=== PATIENT | female | born 1960 | race African-American/Black ===

== ENCOUNTER 2018-08-15 20:27 | Emergency (ER) | payer MEDICAID ==
[~2018-08-15] VITALS: Ht 167.6 cm; Wt 70.8 kg
[2018-08-15 20:48] VITALS: BP 161/86
[2018-08-15] MEDS ORDERED: Ketorolac 30mg Inj IV ONE (21:00)
[2018-08-15] MEDS ORDERED: Sodium Chloride 500ML 550 ML IV SCH (21:00)
[2018-08-15] MEDS ORDERED: Morphine Sulfate 4mg/ml Inj (IV/IM USE ONLY) IVP ONE (21:00)
[2018-08-15 21:22] LABS: INR 1.1 (0.9-1.1)
[2018-08-15 21:24] LABS: BASOPHILS % (AUTO) 0.9 % (0.0-2.0); EOSINOPHILS % (AUTO) 0.2 % (0.0-3.0); HEMATOCRIT 38.5 % (37.0-47.0); HEMOGLOBIN 12.5 G/DL (12.0-16.0); LYMPHOCYTES % (AUTO) 10.3 % (20.0-45.0); MEAN CORPUSCULAR VOLUME 92 FL (80-99); MONOCYTES % (AUTO) 4.9 % (1.0-10.0); NEUTROPHILS % (AUTO) 83.7 % (45.0-75.0); PLATELET COUNT 245 K/UL (150-450); RED BLOOD COUNT 4.18 M/UL (4.20-5.40); RED CELL DISTRIBUTION WIDTH 11.7 % (11.6-14.8); WHITE BLOOD COUNT 7.9 K/UL (4.8-10.8)
[2018-08-15 21:28] LABS: ANION GAP 10 mmol/L (5-15); BLOOD UREA NITROGEN 17 mg/dL (7-18); CALCIUM 9.1 MG/DL (8.5-10.1); CARBON DIOXIDE 28 MMOL/L (21-32); CHLORIDE 104 MMOL/L (98-107); CREATININE 0.9 MG/DL (0.55-1.30); POTASSIUM 3.6 MMOL/L (3.5-5.1); SODIUM 142 MMOL/L (136-145)
[2018-08-15 21:31] LABS: APPEARANCE,URINE CLEAR; BILIRUBIN, URINE NEGATIVE (NEGATIVE); GLUCOSE, URINE (UA) NEGATIVE (NEGATIVE); KETONES,URINE NEGATIVE (NEGATIVE); LEUKOCYTE ESTERASE ,URINE 3+ (NEGATIVE); NITRITE,URINE NEGATIVE (NEGATIVE); PH,URINE 5 (4.5-8.0); PROTEIN,URINE 1+ (NEGATIVE); UROBILINOGEN,URINE NORMAL MG/DL (0.0-1.0)
[2018-08-15 21:32] LABS: COLOR,URINE YELLOW
[2018-08-15 21:38] LABS: ALANINE AMINOTRANSFERASE 12 U/L (12-78); ALBUMIN 4.1 G/DL (3.4-5.0); ALBUMIN/GLOBULIN RATIO 1.2 (1.0-2.7); ALKALINE PHOSPHATASE 55 U/L (46-116); ASPARTATE AMINO TRANSFERASE 11 U/L (15-37)
[2018-08-15 22:35] VITALS: BP 171/77
--- NOTE | 2018-08-15 22:46 | Emergency Room Report ---
History of Present Illness General Chief Complaint: Pain Source: Patient Present Illness HPI Patient presents with right hip pain. It's been going on for at least a month. Initially she was treated with Tylenol and Naprosyn. For the last 2 days this is not been controlling the pain. She denies any trauma. She denies arthritis or gout. She's had no fevers, chills or dysuria. She was moving her bowels normally. At this time the pain is 9/10. Is no swelling of the calf or lower leg and there is no numbness. The pain radiates in towards the lower back but the lower back is nontender. No fevers or chills. No dysuria. No NVD. No rashes. Daughter has done massage which has helped. No major medical problems. No headache, chest pain, dyspnea, abdominal pain. 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 Now: No Reviewed Nursing Documentation: PMH: Agreed; PSxH: Agreed Nursing Documentation-PMH Past Medical History: No Stated History Review of Systems All Other Systems: negative except mentioned in HPI Physical Exam Vital Signs Date Time Temp Pulse Resp B/P (MAP) Pulse Ox O2 Delivery O2 Flow Rate FiO2 08/15/18 20:34 99.0 74 16 169/78 97 Room Air 99.0 Sp02 EP Interpretation: reviewed, normal General Appearance: well appearing, no apparent distress - but in pain, GCS 15 Head: normocephalic Eyes: bilateral eye normal inspection, bilateral eye PERRL ENT: moist mucus membranes Neck: supple Respiratory: lungs clear, normal breath sounds Cardiovascular #1: regular rate, rhythm, no edema Cardiovascular #2: 2+ radial (R), 2+ dorsalis pedis (R) Gastrointestinal: normal inspection, normal bowel sounds, non tender, no mass, non-distended Genitourinary: no CVA tenderness Musculoskeletal: back normal, gait/station normal, no calf tenderness, Anay's Sign negative, other - some pain with movement of her R leg, able to ambulate but with pain Neurologic: alert, oriented x3, grossly normal Psychiatric: mood/affect normal Skin: normal inspection, no rash, warm/dry Medical Decision Making Diagnostic Impression: Primary Impression: Hip pain Qualified Codes: M25.551 - Pain in right hip ER Course Patient presents with nontraumatic hip pain for one month worsening over the last 2 days. Differential includes gout, pseudogout osteoarthritis, rheumatoid arthritis, septic hip amongst others. The latter is less likely as she's not had a fever and there are no skin lesions or erythema. Evaluation will be with labs and x-ray. She'll be treated with Toradol and morphine. Labs significant for normal white count and ESR. CMP is normal. Uric acid is normal. Urinalysis is unremarkable. X-ray of the hip with some inflammation of the acetabulum. The patient is improved here with treatment. The pain is controlled at this time. I discussed the need to have further outpatient work done and that physical therapy would help. The patient is stable for outpatient observation and treatment. Laboratory Tests Test 08/15/18 20:50 08/15/18 21:00 White Blood Count 7.9 K/UL (4.8-10.8) Red Blood Count 4.18 M/UL (4.20-5.40) L Hemoglobin 12.5 G/DL (12.0-16.0) Hematocrit 38.5 % (37.0-47.0) Mean Corpuscular Volume 92 FL (80-99) Mean Corpuscular Hemoglobin 29.9 PG (27.0-31.0) Mean Corpuscular Hemoglobin Concent 32.5 G/DL (32.0-36.0) Red Cell Distribution Width 11.7 % (11.6-14.8) Platelet Count 245 K/UL (150-450) Mean Platelet Volume 6.8 FL (6.5-10.1) Neutrophils (%) (Auto) 83.7 % (45.0-75.0) H Lymphocytes (%) (Auto) 10.3 % (20.0-45.0) L Monocytes (%) (Auto) 4.9 % (1.0-10.0) Eosinophils (%) (Auto) 0.2 % (0.0-3.0) Basophils (%) (Auto) 0.9 % (0.0-2.0) Erythrocyte Sedimentation Rate 27 MM/HR (0-30) Prothrombin Time 11.5 SEC (9.30-11.50) Prothrombin Time INR 1.1 (0.9-1.1) PTT 26 SEC (23-33) Sodium Level 142 MMOL/L (136-145) Potassium Level 3.6 MMOL/L (3.5-5.1) Chloride Level 104 MMOL/L (98-107) Carbon Dioxide Level 28 MMOL/L (21-32) Anion Gap 10 mmol/L (5-15) Blood Urea Nitrogen 17 mg/dL (7-18) Creatinine 0.9 MG/DL (0.55-1.30) Estimate Glomerular Filtration Rate > 60 mL/min (>60) Glucose Level 143 MG/DL (74-106) H Uric Acid 3.3 MG/DL (2.6-7.2) Calcium Level 9.1 MG/DL (8.5-10.1) Total Bilirubin 1.0 MG/DL (0.2-1.0) Aspartate Amino Transferase (AST) 11 U/L (15-37) L Alanine Aminotransferase (ALT) 12 U/L (12-78) Alkaline Phosphatase 55 U/L (46-116) Total Protein 7.6 G/DL (6.4-8.2) Albumin 4.1 G/DL (3.4-5.0) Globulin 3.5 g/dL Albumin/Globulin Ratio 1.2 (1.0-2.7) Urine Color Yellow Urine Appearance Clear Urine pH 5 (4.5-8.0) Urine Specific [place] 1.020 (1.005-1.035) Urine Protein 1+ (NEGATIVE) H Urine Glucose (UA) Negative (NEGATIVE) Urine Ketones Negative (NEGATIVE) Urine Blood Negative (NEGATIVE) Urine Nitrite Negative (NEGATIVE) Urine Bilirubin Negative (NEGATIVE) Urine Urobilinogen Normal MG/DL (0.0-1.0) Urine Leukocyte Esterase 3+ (NEGATIVE) H Urine RBC 0-2 /HPF (0 - 2) Urine WBC 2-4 /HPF (0 - 2) Urine Squamous Epithelial Cells Few /LPF (NONE/OCC) Urine Bacteria Few /HPF (NONE) Other X-Ray Diagnostic Results Other X-Ray Diagnostic Results : X-Ray ordered: R hip Indication: Pain EP Interpretation: Yes Interpretation: no dislocation, no soft tissue swelling, no fractures, other - acetabular inflammation Impression: Other Electronically Signed by: Electronically signed by Stephen Adhikari MD Last Vital Signs Date Time Temp Pulse Resp B/P (MAP) Pulse Ox O2 Delivery O2 Flow Rate FiO2 08/15/18 23:05 98.0 68 15 171/77 100 Room Air 98.0 Status: improved Disposition: HOME, SELF-CARE Condition: Improved Scripts Tramadol Hcl* (ULTRAM*) 50 Mg Tablet 50 MG ORAL Q6H PRN for For Pain, #10 TAB 0 Refills Prov: Stephen Adhikari M.D. 08/15/18 Ibuprofen* (MOTRIN*) 600 Mg Tablet 600 MG ORAL Q6H PRN for For Pain, #20 TAB Prov: Stephen Adhikari M.D. 08/15/18 Referrals: NON PHYSICIAN (PCP) Stephen Adhikari M.D. Aug 15, 2018 22:46
[2018-08-15] MEDS ORDERED: IBUPROFEN600 MG ORAL (22:47)
[2018-08-15] MEDS ORDERED: TRAMADOL HCL50 MG ORAL (22:47)
[2018-08-15 23:05] VITALS: BP 171/77
--- NOTE | 2018-08-16 13:35 | Diagnostic Imaging Report ---
Indication: Right hip pain Technique: 2 views of the right hip Comparison: none Findings: The joint spaces are preserved. No acute fractures. No dislocations. Impression: Negative
== END 2018-08-15 23:10 | disposition home or self-care (01) ==
LOC: EMR 21:53
DX: M25.551 Pain in right hip (principal)
CPT/HCPCS: 36415; 73502; 80053; 81001; 84550; 85025; 85610; 85651; 85730; 96361; 96374; 96375; 99284; J1885; J2270; J2405